=== PATIENT | male | born 1990 | race African-American/Black ===

== ENCOUNTER 2018-07-07 18:11 | Emergency (ER) | payer OTHER ==
[2018-07-07] MEDS ORDERED: CEFAZOLIN/SWI 1gm 1 GM/10 ML SYR ONE (18:42)
[2018-07-07] MEDS ORDERED: TETANUS & DIPHTHERIA TOX,ADULT 0.5 ML VIAL ONE (18:42)
--- NOTE | 2018-07-07 19:09 | RAD REPORT ---
EXAM DESCRIPTION: RAD - Knee Left 3 View - 07/07/2018 6:43 pm CLINICAL HISTORY: chain saw to knee COMPARISON: No comparisons FINDINGS: No fracture or dislocation is seen. No radiopaque foreign body seen.
[2018-07-07] MEDS ORDERED: LIDOCAINE 1% W/EPI 1:100,000 MDV 50 ML VIAL ONE (19:35)
[2018-07-07] MEDS ORDERED: FENTANYL CITR 100 MCG/2 ML ONE (19:37)
--- NOTE | 2018-07-07 21:33 | EDPHYS ---
Physician Documentation [facility] Name: Jason Samaniego Age: 28 yrs Sex: Male : 1990 Arrival Date: 07/07/2018 Time: 18:13 Bed 7 Private MD: ED Physician Jordin Handy HPI: 07/07 23:06 This 28 yrs old Black Male presents to ER via Wheelchair with complaints of Laceration wa To Leg. 23:06 The patient has a laceration related to: working, chainsaw, occurred at work, and there wa are no complicating factors. The injury was accidental. The laceration(s) is(are) located on the left knee. Onset: The symptoms/episode began/occurred just prior to arrival. Associated signs and symptoms: Pertinent positives: bleeding and pain. The patient has not experienced similar symptoms in the past. The patient has not recently seen a physician. came straight here. denies fall or other injuries. Historical: - Allergies: 18:25 No Known Allergies; dm5 - Home Meds: 18:45 None [Active]; hb - PMHx: 18:45 None; hb - PSHx: 18:45 None; hb - Immunization history:: Last tetanus immunization: unknown. - Social history:: Smoking status: Patient/guardian denies using tobacco. - Ebola Screening: : No symptoms or risks identified at this time. - Family history:: not pertinent. - Hospitalizations: : No recent hospitalization is reported. ROS: 23:08 Constitutional: Negative for fever, chills, and weight loss, Eyes: Negative for injury, wa pain, redness, and discharge, ENT: Negative for injury, pain, and discharge, Neck: Negative for injury, pain, and swelling, Cardiovascular: Negative for chest pain, palpitations, and edema, Respiratory: Negative for shortness of breath, cough, wheezing, and pleuritic chest pain, Abdomen/GI: Negative for abdominal pain, nausea, vomiting, diarrhea, and constipation, Back: Negative for injury and pain, : Negative for injury, bleeding, discharge, and swelling, Neuro: Negative for headache, weakness, numbness, tingling, and seizure, Psych: Negative for depression, anxiety, suicide ideation, homicidal ideation, and hallucinations. 23:08 MS/extremity: Positive for laceration, pain, of the left knee. 23:08 Skin: Positive for laceration(s), of the left knee. Exam: 23:09 Constitutional: This is a well developed, well nourished patient who is awake, alert, wa and in no acute distress. Head/Face: Normocephalic, atraumatic. Eyes: Pupils equal round and reactive to light, extra-ocular motions intact. Lids and lashes normal. Conjunctiva and sclera are non-icteric and not injected. Cornea within normal limits. Periorbital areas with no swelling, redness, or edema. ENT: Nares patent. No nasal discharge, no septal abnormalities noted. Tympanic membranes are normal and external auditory canals are clear. Oropharynx with no redness, swelling, or masses, exudates, or evidence of obstruction, uvula midline. Mucous membranes moist. Neck: Trachea midline, no thyromegaly or masses palpated, and no cervical lymphadenopathy. Supple, full range of motion without nuchal rigidity, or vertebral point tenderness. No Meningismus. Chest/axilla: Normal chest wall appearance and motion. Nontender with no deformity. No lesions are appreciated. Cardiovascular: Regular rate and rhythm with a normal S1 and S2. No gallops, murmurs, or rubs. Normal PMI, no JVD. No pulse deficits. Respiratory: Lungs have equal breath sounds bilaterally, clear to auscultation and percussion. No rales, rhonchi or wheezes noted. No increased work of breathing, no retractions or nasal flaring. Abdomen/GI: Soft, non-tender, with normal bowel sounds. No distension or tympany. No guarding or rebound. No evidence of tenderness throughout. Back: No spinal tenderness. No costovertebral tenderness. Full range of motion. Neuro: Awake and alert, GCS 15, oriented to person, place, time, and situation. Cranial nerves II-XII grossly intact. Motor strength 5/5 in all extremities. Sensory grossly intact. Cerebellar exam normal. Normal gait. Psych: Awake, alert, with orientation to person, place and time. Behavior, mood, and affect are within normal limits. 23:09 Musculoskeletal/extremity: Extremities: grossly normal except: noted in the left knee: laceration. 23:09 Skin: injury, laceration(s), the wound is approximately 7 cm(s), with a depth of 1 cm(s), of the left knee. Vital Signs: 18:25 BP 141 / 87; Pulse 71; Resp 18; Temp 98.2; Pulse Ox 100% on R/A; Weight 79.83 kg (R); dm5 Height 5 ft. 11 in. (180.34 cm); Pain 4/10; 19:29 BP 126 / 77; Pulse 64; Resp 18; Pulse Ox 98% on R/A; tl2 18:25 Body Mass Index 24.55 (79.83 kg, 180.34 cm) dm5 Laceration: 23:09 Wound Repair of 7cm ( 2.8in ) full thickness laceration to left knee. Irregularly wa shaped.. Moderate contamination.. Distal neuro/vascular/tendon intact. Anesthesia: Local anesthetic administered with 10 mls of 1% lidocaine w/ Epi. Wound prep: Wound irrigation with saline, Wound explored moderately extensively, Copious irrigation. Fascia closed with 7 3-0 Vicryl using interrupted sutures and sterile technique. Skin closed with 9 3-0 Prolene using interrupted sutures and sterile technique. Dressed with Bacitracin, Kerlix, knee immobilizer. Patient tolerated well. MDM: 18:24 Patient medically screened. tn 23:12 Differential diagnosis: tendon injury, vascular injury, r/o tendon injury. Data wa reviewed: vital signs, nurses notes. Test interpretation: by ED physician or midlevel provider: L knee xray: no acute Fx. Response to treatment: the patient's symptoms have markedly improved after treatment. ED course: pain meds IV. received abx. updated tetanus. 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 Lot #: [id number]. } Route: IM; Site: right deltoid; 18:56 Follow up: Response: No adverse reaction hb 18:38 Drug: Ancef 1 grams Route: IVPB; Site: right antecubital; hb 18:45 Follow up: Response: No adverse reaction; IV Status: Completed infusion; IV Intake: 10mlhb 19:28 Drug: fentaNYL (PF) 75 mcg Route: IVP; Site: right antecubital; tl2 Disposition: 07/07/18 21:32 Discharged to Home. Impression: Left Knee Laceration. - Condition is Stable. - Discharge Instructions: Laceration Care, Adult, [id number]-wt-Epht. - Prescriptions for Keflex 500 mg Oral Capsule - take 1 capsule by ORAL route every 8 hours for 7 days; 21 capsule. Ibuprofen 600 mg Oral Tablet - take 1 tablet by ORAL route every 6 hours As needed take with food; 30 tablet. - Work release form, Medication Reconciliation Form, Thank You Letter, Antibiotic Education, Prescription Opioid Use form. - Follow up: Micky Vasquez MD; When: 2 - 3 days; Reason: Wound Recheck. - Problem is new. - Symptoms have improved. - Notes: keep stitches in for 12-14 days. wear knee immobilizer for at least 1 week to prevent bending of the knee. bending of the knee could unravel the stitches. return to ER immediately for any signs of infection as discussed with you Addendum: 07/09/2018 19:24 Addendum: 1920 Hrs on 07/09/18: Brought pt in for wound check. L knee lac with sutures. w a noted intact. no redness, swelling or fluctuance. pt stated doing well. denies discharge out of wound. I did apply steri-strips b/n sutures for further wound support. pt tolerated well. advised to f/u in 10 days for staple removal as advised. to return to ED or see PMD for any signs of infection. Signatures: Dispatcher [employer] Carly Vallejo RN RN dm5 Maria Guadalupe Teixeira RN RN Rosanna Vital RN RN tl2 Jordin Handy MD MD wa Corrections: (The following items were deleted from the chart) 07/07 22:18 21:32 07/07/2018 21:32 Discharged to Home. Impression: Left Knee Laceration. Condition tl2 is Stable. Forms are Medication Reconciliation Form, Thank You Letter, Antibiotic Education, Prescription Opioid Use. Follow up: Micky Vasquez; When: 2 - 3 days; Reason: Wound Recheck. Problem is new. Symptoms have improved. wa
--- NOTE | 2018-07-07 21:33 | ER ---
Nurse's Notes [facility] Name: Jason Samaniego Age: 28 yrs Sex: Male : 1990 Arrival Date: 07/07/2018 Time: 18:13 Bed 7 Private MD: Diagnosis: Left Knee Laceration Presentation: 07/07 18:21 Presenting complaint: Patient states: cut knee with chain saw at work about 30 minutes dm5 ago. Pt has a laceration approximately 5 inches long just proximal to knee cap. Bleeding is controlled at this time. Pt has full ROM in both lower extremities. Pt rates pain at 4/10. Transition of care: patient was not received from another setting of care. Complicating Factors: There are no complicating factors for this patient. Onset of symptoms was July 07, 2018. Risk Assessment: Do you want to hurt yourself or someone else? Patient reports no desire to harm self or others. Initial Sepsis Screen: Does the patient meet any 2 criteria? No. Patient's initial sepsis screen is negative. Does the patient have a suspected source of infection? No. Patient's initial sepsis screen is negative. Care prior to arrival: None. 18:21 Method Of Arrival: Wheelchair dm5 18:21 Acuity: TONEY 2 dm5 Triage Assessment: 18:25 General: Appears in no apparent distress. uncomfortable, Behavior is calm, cooperative. dm5 Pain: Complains of pain in left knee Pain does not radiate. Pain currently is 4 out of 10 on a pain scale. Pain began 30 min ago. Is continuous. Injury Description: Laceration sustained to left knee is clean, 7.6 to 20 cm long, not bleeding, was sustained 30-60 minutes ago. is bleeding no active bleeding noted. a dressing was applied. Historical: - Allergies: 18:25 No Known Allergies; dm5 - Home Meds: 18:45 None [Active]; hb - PMHx: 18:45 None; hb - PSHx: 18:45 None; hb - Immunization history:: Last tetanus immunization: unknown. - Social history:: Smoking status: Patient/guardian denies using tobacco. - Ebola Screening: : No symptoms or risks identified at this time. - Family history:: not pertinent. - Hospitalizations: : No recent hospitalization is reported. Screenin:38 Abuse screen: Denies threats or abuse. Denies injuries from another. Nutritional hb screening: No deficits noted. Tuberculosis screening: No symptoms or risk factors identified. Fall Risk None identified. Assessment: 18:39 General: Appears in no apparent distress. Behavior is calm, cooperative. Pain: Pain hb currently is 6 out of 10 on a pain scale. Neuro: Level of Consciousness is awake, alert, obeys commands, Oriented to person, place, time, situation. Cardiovascular: Capillary refill < 3 seconds Patient's skin is warm and dry. Respiratory: Airway is patent Respiratory effort is even, unlabored, Respiratory pattern is regular, symmetrical. GI: No signs and/or symptoms were reported involving the gastrointestinal system. : No signs and/or symptoms were reported regarding the genitourinary system. EENT: No signs and/or symptoms were reported regarding the EENT system. Derm: Skin is pink, warm \T\ dry. Musculoskeletal: No signs and/or symptoms reported regarding the musculoskeletal system. Injury Description: Laceration sustained to left knee is jagged, 7.6 to 20 cm long, not bleeding, was sustained 30-60 minutes ago. 19:29 Reassessment: pt requested pain medication, notified, new order see APR. tl2 Vital Signs: 18:25 BP 141 / 87; Pulse 71; Resp 18; Temp 98.2; Pulse Ox 100% on R/A; Weight 79.83 kg (R); dm5 Height 5 ft. 11 in. (180.34 cm); Pain 4/10; 19:29 BP 126 / 77; Pulse 64; Resp 18; Pulse Ox 98% on R/A; tl2 18:25 Body Mass Index 24.55 (79.83 kg, 180.34 cm) 5 ED Course: 18:13 Patient arrived in ED. mr 18:24 Triage completed. 5 18:24 Jordin Handy MD is Attending Physician. wa 18:25 Arm band placed on left wrist. Patient placed in an exam room, on a stretcher. 5 18:27 Maria Gaudalupe Teixeira, RN is Primary Nurse. hb 18:30 Inserted saline lock: 20 gauge in right antecubital area, using aseptic technique. hb 18:38 Patient has correct armband on for positive identification. Bed in low position. Call hb light in reach. Side rails up X 1. 18:43 Knee Left 3 View XRAY In Process Unspecified. EDMS 21:32 Micky Vasquez MD is Referral Physician. 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 Lot #: [id number]. } Route: IM; Site: right deltoid; 18:56 Follow up: Response: No adverse reaction hb 18:38 Drug: Ancef 1 grams Route: IVPB; Site: right antecubital; hb 18:45 Follow up: Response: No adverse reaction; IV Status: Completed infusion; IV Intake: 10mlhb 19:28 Drug: fentaNYL (PF) 75 mcg Route: IVP; Site: right antecubital; tl2 Intake: 18:45 IV: 10ml; Total: 10ml. hb Outcome: 21:32 Discharge ordered by . lucrecia 22:18 Patient left the ED. tl2 Signatures: Dispatcher [employer] EDDC Carly Rosales RN RN 5 Chantale Abreu Heather, RN RN Rosanna Vital RN RN tl2 Jordin Handy MD MD wa
== END 2018-07-07 22:18 | disposition home or self-care (01) ==
LOC: ER 18:11
PROC: 0JQP0ZZ Repair Left Lower Leg Subcutaneous Tissue and Fascia, Open Approach (ICD-10-PCS; principal; 2018-07-07)
DX: S81.012A Laceration without foreign body, left knee, initial encounter (principal); W29.3XXA Contact with powered garden and outdoor hand tools and machinery, initial encounter; Z23 Encounter for immunization
CPT/HCPCS: 90471; 90714; 96374; 96375; 99283; J0690; J3010

== ENCOUNTER 2018-07-22 08:53 | Emergency (ER) | payer OTHER ==
--- NOTE | 2018-07-22 09:35 | ER ---
Nurse's Notes [facility] Name: Jason Samaniego Age: 28 yrs Sex: Male : 1990 Arrival Date: 07/22/2018 Time: 08:56 Bed 17 Private MD: Diagnosis: Encounter for removal of sutures Presentation: 07/22 08:57 Presenting complaint: Patient states: Was here two weeks ago with a chain saw injury to rb1 left kneed and is here to have stitches removed. 08:57 Method Of Arrival: Ambulatory [facility] 08:57 Transition of care: patient was not received from another setting of care. Onset of rb1 symptoms was July 08, 2018. Risk Assessment: Do you want to hurt yourself or someone else? Patient reports no desire to harm self or others. Initial Sepsis Screen: Does the patient meet any 2 criteria? No. Patient's initial sepsis screen is negative. Does the patient have a suspected source of infection? No. Patient's initial sepsis screen is negative. Care prior to arrival: None. 08:57 Acuity: TONEY 4 rb1 Triage Assessment: 08:57 General: Appears in no apparent distress. comfortable, Behavior is calm, cooperative, rb1 Denies fever. Pain: Complains of pain in left knee Pain currently is 2 out of 10 on a pain scale. Pain began Two weeks ago. Neuro: Level of Consciousness is awake, alert, obeys commands, Oriented to person, place, time, situation. Cardiovascular: Capillary refill < 3 seconds is brisk in bilateral fingers. Respiratory: Airway is patent Respiratory effort is even, unlabored, Respiratory pattern is regular, symmetrical. GI: No signs and/or symptoms were reported involving the gastrointestinal system. : No signs and/or symptoms were reported regarding the genitourinary system. Derm: Skin is dry, Skin is normal, Skin temperature is warm. Musculoskeletal: Range of motion: intact in all extremities. Historical: - Allergies: 08:57 No Known Allergies; rb1 - Home Meds: 08:57 None [Active]; rb1 - PMHx: 08:57 None; rb1 - PSHx: 08:57 None; rb1 - Immunization history:: Last tetanus immunization: up to date. - Social history:: Smoking status: Patient uses tobacco products, denies chronic smoking, but will smoke occasionally. - Ebola Screening: : Patient negative for fever greater than or equal to 101.5 degrees Fahrenheit, and additional compatible Ebola Virus Disease symptoms. Screenin:57 Abuse screen: Denies threats or abuse. Nutritional screening: No deficits noted. rb1 08:57 Tuberculosis screening: No symptoms or risk factors identified. Fall Risk None rb1 identified. Assessment: 08:57 General: See triage assessment. rb1 09:30 Reassessment: Patient appears in no apparent distress at this time. No changes from rb1 previously documented assessment. Vital Signs: 08:57 BP 123 / 78; Pulse 69; Resp 16; Temp 97.8(O); Pulse Ox 100% on R/A; Weight 81.65 kg rb1 (R); Height 6 ft. 0 in. (182.88 cm) (R); Pain 2/10; 09:30 BP 123 / 75; Pulse 71; Resp 16; Temp 97.9(O); Pulse Ox 100% on R/A; Pain 2/10; rb1 08:57 Body Mass Index 24.41 (81.65 kg, 182.88 cm) rb1 ED Course: 08:56 Patient arrived in ED. as 08:57 Rosio Warren, LOUIE is Primary Nurse. rb1 08:57 Arm band placed on right wrist. rb1 08:57 Patient has correct armband on for positive identification. Bed in low position. Call rb1 light in reach. Side rails up X 1. Pulse ox on. NIBP on. 08:58 Manolo Maria NP is PHCP. pm1 08:58 Khanh Galan MD is Attending Physician. pm1 09:14 Triage completed. rb1 09:46 Wound care: to laceration located on left knee was dressed with Neosporin, NON ADHERENT mh5 DRESSINS, Patient tolerated well. 09:49 No provider procedures requiring assistance completed. Patient did not have IV access rb1 during this emergency room visit. Administered Medications: No medications were administered Outcome: 09:34 Discharge ordered by . pm1 09:49 Discharged to home ambulatory. rb1 09:49 Condition: stable 09:49 Discharge instructions given to patient, Instructed on discharge instructions, follow up and referral plans. Demonstrated understanding of instructions, follow-up care, Prescriptions given X none 09:50 Patient left the ED. rb1 Signatures: Kiana Nguyen as Rosio Warren RN RN rb1 Manolo Maria NP PLUG AND MOLD FINISHER pm1 Jeanne Nguyen [facility] Corrections: (The following items were deleted from the chart) 09:10 Presenting complaint: Patient states: Was here two weeks ago with a chain saw rb1 injury to left kneed and is here to have stitches removed. rb1 09:10 Method Of Arrival: Ambulatory [facility] rb1
--- NOTE | 2018-07-22 09:35 | EDPHYS ---
Physician Documentation [facility] Name: Jason Samaniego Age: 28 yrs Sex: Male : 1990 Arrival Date: 07/22/2018 Time: 08:56 Bed 17 Private MD: ED Physician Khanh Galan HPI: 07/22 09:50 This 28 yrs old Black Male presents to ER via Ambulatory with complaints of Suture pm1 Removal. 09:50 The patient has sutures on the left knee. Previous treatment: The patient was initially pm1 treated 14 day(s) ago. Sutures/brady progress: The patient has no c/o's. The wound is well-healing with no redness, swelling, discharge, or dehiscence reported. The patient has not experienced similar symptoms in the past. The patient has not recently seen a physician. One suture fell off per patient. Historical: - Allergies: 08:57 No Known Allergies; rb1 - Home Meds: 08:57 None [Active]; rb1 - PMHx: 08:57 None; rb1 - PSHx: 08:57 None; rb1 - Immunization history:: Last tetanus immunization: up to date. - Social history:: Smoking status: Patient uses tobacco products, denies chronic smoking, but will smoke occasionally. - Ebola Screening: : Patient negative for fever greater than or equal to 101.5 degrees Fahrenheit, and additional compatible Ebola Virus Disease symptoms. ROS: 09:50 Constitutional: Negative for fever, chills, and weight loss, MS/Extremity: Negative for pm1 injury and deformity, Skin: Negative for injury, rash, and discoloration. 09:50 Cardiovascular: Negative for chest pain, palpitations, and edema, Respiratory: Negative for shortness of breath, cough, wheezing, and pleuritic chest pain, Abdomen/GI: Negative for abdominal pain, nausea, vomiting, diarrhea, and constipation, Neuro: Negative for headache, weakness, numbness, tingling, and seizure. Exam: 09:50 Constitutional: This is a well developed, well nourished patient who is awake, alert, pm1 and in no acute distress. Head/Face: Normocephalic, atraumatic. Cardiovascular: Regular rate and rhythm with a normal S1 and S2. No gallops, murmurs, or rubs. Normal PMI, no JVD. No pulse deficits. Respiratory: Lungs have equal breath sounds bilaterally, clear to auscultation and percussion. No rales, rhonchi or wheezes noted. No increased work of breathing, no retractions or nasal flaring. Abdomen/GI: Soft, non-tender, with normal bowel sounds. No distension or tympany. No guarding or rebound. No evidence of tenderness throughout. Back: No spinal tenderness. No costovertebral tenderness. Full range of motion. Skin: Warm, dry with normal turgor. Normal color with no rashes, no lesions, and no evidence of cellulitis. MS/ Extremity: Pulses equal, no cyanosis. Neurovascular intact. Full, normal range of motion. 09:50 Neuro: Orientation: is normal, Motor: is normal, moves all fours, Sensation: is normal, no obvious gross deficits, Gait: is steady, at a normal pace, without difficulty. Vital Signs: 08:57 BP 123 / 78; Pulse 69; Resp 16; Temp 97.8(O); Pulse Ox 100% on R/A; Weight 81.65 kg rb1 (R); Height 6 ft. 0 in. (182.88 cm) (R); Pain 2/10; 09:30 BP 123 / 75; Pulse 71; Resp 16; Temp 97.9(O); Pulse Ox 100% on R/A; Pain 2/10; rb1 08:57 Body Mass Index 24.41 (81.65 kg, 182.88 cm) rb1 Procedures: 09:50 Suture/Staple removal: Removed 8 sutures, from left knee, site appears well healed, pm1 dressed with 4x4. Patient tolerated well. MDM: 09:01 Patient medically screened. pm1 09:22 Data reviewed: vital signs. Data interpreted: Pulse oximetry: on room air is 100 %. pm1 Interpretation: normal. Counseling: I had a detailed discussion with the patient and/or guardian regarding: the historical points, exam findings, and any diagnostic results supporting the discharge/admit diagnosis, the need for outpatient follow up, to return to the emergency department if symptoms worsen or persist or if there are any questions or concerns that arise at home. Administered Medications: No medications were administered Disposition: 12:55 Co-signature as Attending Physician, Khanh Galan MD I agree with the assessment and eneida plan of care. Disposition: 07/22/18 09:34 Discharged to Home. Impression: Encounter for removal of sutures. - Condition is Stable. - Discharge Instructions: Suture Removal, Care After. - Work release form, Medication Reconciliation Form, Thank You Letter, Antibiotic Education, Prescription Opioid Use form. - Follow up: Emergency Department; When: As needed; Reason: Worsening of condition. Follow up: Private Physician; When: As needed; Reason: Recheck today's complaints, Continuance of care, Re-evaluation by your physician. - Problem is new. - Symptoms have improved. Signatures: Khanh Galan MD MD cha Barber, Rebecca RN RN rb1 Manolo Maria, MANAGEMENT TRAINEE MARKETING MANAGEMENT [employer]ET[employer] pm1 Corrections: (The following items were deleted from the chart) 09:50 09:34 07/22/2018 09:34 Discharged to Home. Impression: Encounter for removal of rb1 sutures. Condition is Stable. Forms are Medication Reconciliation Form, Thank You Letter, Antibiotic Education, Prescription Opioid Use. Follow up: Emergency Department; When: As needed; Reason: Worsening of condition. Follow up: Private Physician; When: As needed; Reason: Recheck today's complaints, Continuance of care, Re-evaluation by your physician. Problem is new. Symptoms have improved. pm1
== END 2018-07-22 09:50 | disposition home or self-care (01) ==
LOC: ER 08:53
DX: Z48.02 Encounter for removal of sutures (principal); Z72.0 Tobacco use
CPT/HCPCS: 99283

== ENCOUNTER 2024-03-09 21:48 | Emergency (ER) | payer OTHER ==
[2024-03-09] MEDS ORDERED: ONDANSETRON 4 MG/2 ML VIAL ONE (22:39)
[2024-03-09] MEDS ORDERED: NA CHLORIDE 0.9% 1,000 ML ONE (22:39)
[2024-03-09 22:56] LABS: Absolute Lymphocytes (CBC) 1.4 K/uL (0.7-4.9); Absolute Neutrophil 4.4 K/uL (1.8-8.0); Basophils % 0.4 % (0-1.3); Eosinophils % 0.1 % (0-4.4); Hematocrit 44.3 % (39.6-49.0); Lymphocytes % 20.3 % (15.3-44.8); MCH 30.4 pg (27.0-35.0); MCHC 33.8 g/dL (32.0-36.0); MCV 90.1 fL (80-100); MPV 7.7 fL (7.6-11.3); Monocytes % 14.1 % (3.3-12.3); Neutrophils % 65.1 % (41.7-73.7); Nucleated Red Blood Cells % 0.1 % (0-0); Platelets 212 thou/uL (152-406); RBC Red Blood Cell Count 4.92 M/uL (4.33-5.43); Red Cell Distribution Width 12.2 % (12.1-15.2)
[2024-03-09 23:12] LABS: Albumin 3.8 g/dL (3.4-5.0); Anion Gap 8.5 mEq/L (5.0-15.0); Bilirubin Total 0.6 mg/dL (0.2-1.0); Globulin 3.8 g/dL (2.3-3.5); Potassium 3.5 mEq/L (3.5-5.1); Protein, Total 7.6 g/dL (6.4-8.2)
--- NOTE | 2024-03-09 23:51 | EDPHYS ---
Physician Documentation [facility] Name: Jason Samaniego Age: 33 yrs Sex: Male : 1990 Arrival Date: 03/09/2024 Time: 21:48 Bed 24 Private MD: ED Physician Ronald Villalta HPI: 03/09 23:35 This 33 yrs old Black Male presents to ER via Ambulatory with complaints of Decreased kb Appetite, Vomiting, Flu Symptoms - +. 23:35 Pt is a 33 year old male who presents for nausea and vomiting that started 5 days ago. kb States he was seen and tested positive for the flu 5 days ago. States he has been taking zofran and phenergan which have been helping. States he has been fever free for 2-3 days, but the vomiting has continued. . Historical: - Allergies: 23:26 No Known Allergies; ha1 - PMHx: 23:26 None; ha1 - Immunization history:: Adult Immunizations up to date. - Infectious Disease History:: Denies. - Social history:: Smoking status: Patient/guardian denies using tobacco, Stopped _ months ago 1. ROS: 23:36 Constitutional: As per HPI kb Exam: 23:36 Constitutional: This is a well developed, well nourished patient who is awake, alert, kb and in no acute distress. Head/Face: Normocephalic, atraumatic. ENT: Moist Mucous membranes Cardiovascular: Regular rate Respiratory: Respirations even and unlabored. No increased work of breathing. Talking in full sentences Abdomen/GI: Soft, non-tender. No distention Skin: Warm, dry with normal turgor. Normal color. MS/ Extremity: Pulses equal, no cyanosis. Neurovascular intact. Full, normal range of motion. Neuro: Awake and alert, GCS 15, oriented to person, place, time, and situation. Vital Signs: 22:10 BP 146 / 99; Pulse 83; Resp 18 S; Temp 98.2(O); Pulse Ox 96% on R/A; Weight 68.04 kg; ha1 Height 6 ft. 0 in. ; 23:30 BP 126 / 84; Pulse 74; Resp 15; Pulse Ox 100% ; me1 23:54 BP 127 / 81; Pulse 68; Resp 16; Temp 98.5; Pulse Ox 98% ; me1 22:10 Body Mass Index 20.34 (68.04 kg, 182.88 cm) ha1 MDM: 21:53 Medical Screening Exam initiated kb 23:49 Data reviewed: vital signs, nurses notes. kb 23:49 Differential diagnosis: dehydration, abnormal electrolytes. Test considered but Not kb performed: CT: ct abd considered but pt has no abd tenderness, nausea resolved after treatment and is tolerating po intake. Counseling: I had a detailed discussion with the patient and/or guardian regarding the historical points, exam findings, and any diagnostic results supporting the discharge/admit diagnosis, lab results, the need for outpatient follow up, a family practitioner, to return to the emergency department if symptoms worsen or persist or if there are any questions or concerns that arise at home. 03/09 22:17 Order name: CBC with Diff; Complete Time: 23:14 kb 03/09 22:17 Order name: CMP; Complete Time: 23:14 kb 03/09 22:17 Order name: Lipase; Complete Time: 23:14 kb 03/09 22:17 Order name: IV Saline Lock; Complete Time: 22:42 kb 03/09 22:17 Order name: Labs collected and sent; Complete Time: 22:42 kb 03/09 23:15 Order name: PO challenge; Complete Time: 23:39 kb Administered Medications: 22:42 Drug: Ondansetron IVP 4 mg IVP once; over 2 minutes Route: IVP; Site: right antecubital;me1 23:38 Follow up: Response: No adverse reaction; Nausea is decreased me1 22:42 Drug: NS 0.9% IV 1000 ml IV at 1 bolus Per protocol; to be given as a bolus over 60 me1 minutes Route: IV; Rate: 1 bolus; Site: right antecubital; 23:38 Follow up: Response: No adverse reaction; IV Status: Completed infusion; IV Intake: me1 1000ml Disposition Summary: 03/09/24 23:50 Discharge Ordered Notes: Location: Home Condition: Stable kb Diagnosis - Nausea with vomiting, unspecified kb Followup: kb - With: Emergency Department - When: As needed - Reason: Worsening of condition Followup: kb - With: Private Physician - When: 2 - 3 days - Reason: Recheck today's complaints, Continuance of care, Re-evaluation by your physician Discharge Instructions: - Discharge Summary Sheet kb - Nausea and Vomiting, Adult, [id number] kb Forms: - Medication Reconciliation Form kb - Antibiotic Education kb - Prescription Opioid Use kb - Patient Portal Instructions kb - Leadership Thank You Letter kb Addendum: 03/16/2024 09:14 I was immediately available for consultation during this patient's visit. I did not e c2 personally see the patient or discuss the patient with the EULALIO. . Signatures: Dispatcher [employer] Samantha Flores, [employer] KAN-Britni Gan RN RN ha1 Treva Canchola RN RN me1 Ronald Villalta MD MD ec2
--- NOTE | 2024-03-09 23:51 | ER ---
Nurse's Notes [facility] Name: Jason Samaniego Age: 33 yrs Sex: Male : 1990 Arrival Date: 03/09/2024 Time: 21:48 Bed 24 Private MD: Diagnosis: Nausea with vomiting, unspecified Presentation: 03/09 22:10 Chief complaint: Patient states: nausea and vomiting . diagnosed with flu seven days ha1 ago. no fever. 22:10 Coronavirus screen: Client denies travel out of the [place] in the last 14 days. Ebola ha1 Screen: No symptoms or risks identified at this time. Initial Sepsis Screen: Does the patient meet any 2 criteria? No. Patient's initial sepsis screen is negative. Does the patient have a suspected source of infection? No. Patient's initial sepsis screen is negative. Risk Assessment: Do you want to hurt yourself or someone else? Patient reports no desire to harm self or others. Onset of symptoms was March 09, 2024. 22:10 Method Of Arrival: Ambulatory ha1 22:10 Acuity: TONEY 3 ha1 Triage Assessment: 22:10 General: Appears uncomfortable, Behavior is calm, cooperative. Pain: Complains of pain ha1 in abdomen Pain does not radiate. Pain currently is 5 out of 10 on a pain scale. Quality of pain is described as crampy. Neuro: Level of Consciousness is awake, alert, obeys commands, Oriented to person, place, time, situation. Cardiovascular: Patient's skin is warm and dry. Respiratory: Airway is patent Respiratory effort is even, unlabored, Respiratory pattern is regular, symmetrical. GI: Reports lower abdominal pain, nausea, vomiting. Historical: - Allergies: 23:26 No Known Allergies; ha1 - PMHx: 23:26 None; ha1 - Immunization history:: Adult Immunizations up to date. - Infectious Disease History:: Denies. - Social history:: Smoking status: Patient/guardian denies using tobacco, Stopped _ months ago 1. Screenin:30 [facility] ED Fall Risk Assessment (Adult) History of falling in the last 3 months, me1 including since admission No falls in past 3 months (0 pts) Confusion or Disorientation No (0 pts) Intoxicated or Sedated No (0 pts) Impaired Gait No (0 pts) Mobility Assist Device Used No (0 pt) Altered Elimination No (0 pt) Score/Fall Risk Level 0 - 2 = Low Risk Maintained a safe environment, Provided non-skid footwear, Hourly rounding (assess needs \T\ fall precautionary measures) done. Abuse screen: Denies threats or abuse. Nutritional screening: No deficits noted. Tuberculosis screening: No symptoms or risk factors identified. Assessment: 22:30 General: Appears ill, well groomed, well developed, well nourished, Behavior is calm, me1 cooperative, appropriate for age, Reports decreased appetite, n/v, flu symptoms. Denies fever. Pain: Denies pain. Neuro: Level of Consciousness is awake, alert, obeys commands, Oriented to person, place, time, situation, Appropriate for age. Cardiovascular: Patient's skin is warm and dry. Respiratory: Airway is patent Respiratory effort is even, unlabored, Respiratory pattern is regular, symmetrical. GI: Reports nausea, vomiting. GI: Abdomen is flat, non-distended, Bowel sounds present X 4 quads. : No signs and/or symptoms were reported regarding the genitourinary system. EENT: No signs and/or symptoms were reported regarding the EENT system. Derm: Skin is intact, is healthy with good turgor, Skin is pink, warm \T\ dry. Musculoskeletal: No signs and/or symptoms reported regarding the musculoskeletal system. 22:42 General: Per Samantha, ACCOUNT GENERAL MANAGER do not swab patient as he was already flu positive . me1 Vital Signs: 22:10 BP 146 / 99; Pulse 83; Resp 18 S; Temp 98.2(O); Pulse Ox 96% on R/A; Weight 68.04 kg; ha1 Height 6 ft. 0 in. ; 23:30 BP 126 / 84; Pulse 74; Resp 15; Pulse Ox 100% ; me1 23:54 BP 127 / 81; Pulse 68; Resp 16; Temp 98.5; Pulse Ox 98% ; me1 22:10 Body Mass Index 20.34 (68.04 kg, 182.88 cm) ha1 ED Course: 21:51 Patient arrived in ED. ra3 21:53 [facility] Ty [facility]C [facility] kb 21:53 Ronald Villalta MD is Attending Physician. kb 22:10 Arm band placed on Patient placed in an exam room. me1 22:20 Treva Canchola, RN is Primary Nurse. me1 22:30 No provider procedures requiring assistance completed. me1 22:30 Patient has correct armband on for positive identification. Bed in low position. Call nm1 light in reach. Side rails up X2. Provided Education on: POC. Verbalized understanding.. Client placed on continuous cardiac and pulse oximetry monitoring. NIBP monitoring applied. Pulse ox on. NIBP on. 22:42 CBC with Diff Sent. me1 22:42 CMP Sent. me1 22:42 Lipase Sent. me1 22:42 Initial lab(s) drawn, by ED staff, sent to lab. Inserted saline lock: 22 gauge in right me1 antecubital area, using aseptic technique. 23:26 Triage completed. ha1 23:55 IV discontinued, intact, bleeding controlled, No redness/swelling at site. Pressure me1 dressing applied. Administered Medications: 22:42 Drug: Ondansetron IVP 4 mg IVP once; over 2 minutes Route: IVP; Site: right antecubital;me1 23:38 Follow up: Response: No adverse reaction; Nausea is decreased me1 22:42 Drug: NS 0.9% IV 1000 ml IV at 1 bolus Per protocol; to be given as a bolus over 60 me1 minutes Route: IV; Rate: 1 bolus; Site: right antecubital; 23:38 Follow up: Response: No adverse reaction; IV Status: Completed infusion; IV Intake: me1 1000ml Medication: 22:30 VIS not applicable for this client. me1 Intake: 23:38 IV: 1000ml; Total: 1000ml. nm1 Outcome: 23:50 Discharge ordered by MD. dove 23:55 Discharged to home ambulatory, me1 23:55 Condition: stable 23:55 Discharge instructions given to patient, Instructed on discharge instructions, follow up and referral plans. Demonstrated understanding of instructions, follow-up care, 23:55 Patient left the ED. nm1 Signatures: Samantha Ty FNP-C FNP-Britni Gan, RN RN [facility] Treva Canchola, RN RN nm1 Meena Rashid ra3
[2024-03-10 17:15] VITALS: BP 127/81; TEMP 98.5; O2SAT 98
== END 2024-03-09 23:55 | disposition home or self-care (01) ==
LOC: ER 21:48
DX: R11.2 Nausea with vomiting, unspecified (principal)
CPT/HCPCS: 96361; 85025; 36415; 83690; 80053; 96374; 99284; J2405; J7030